=== PATIENT | female | born 1970 | race Caucasian/White ===

== ENCOUNTER 2024-04-23 06:52 | Observation (INO) | payer OTHER ==
[2024-04-20 12:06] LABS: BASOPHILS # (AUTO) 0.1 (0.0-0.1); BASOPHILS % 0.5 % (0.0-1.0); EOSINOPHILS % 0.2 % (0.0-6.0); HEMATOCRIT 48.1 % (34.2-44.1); HEMOGLOBIN 15.8 g/dL (12.0-16.0); LYMPHOCYTES # (AUTO) 2.5 (1.0-3.2); LYMPHOCYTES % 18.9 % (18.0-39.1); MEAN CORPUSCULAR HEMOGLOBIN 32.2 pg (28-32); MEAN CORPUSCULAR HGB CONC 32.8 g/dL (31-35); MEAN CORPUSCULAR VOLUME 98.2 fL (81-99); MONOCYTES # (AUTO) 0.8 (0.2-0.8); MONOCYTES % 5.8 % (4.4-11.3); NEUTROPHILS # (AUTO) 9.9 (2.1-6.9); NEUTROPHILS % 74.2 % (38.7-80.0); PLATELET COUNT 179 x10e3/uL (140-360); RED CELL DISTRIBUTION WIDTH 11.9 % (11.7-14.4); WHITE BLOOD COUNT 13.36 x10e3/uL (4.8-10.8)
[2024-04-20 12:16] LABS: INR 0.89; PROTHROMBIN TIME 12.5 seconds (11.9-14.5)
[2024-04-20 12:21] LABS: ANION GAP 18.8 mmol/L (8-16); CALCIUM 10.3 mg/dL (8.4-10.2); CREATININE, SERUM 0.98 mg/dL (0.57-1.11); POTASSIUM 3.8 mmol/L (3.5-5.1)
[~2024-04-23] VITALS: Ht 157.5 cm; Wt 58.1 kg
[~2024-04-23 06:52] MED LIST: BUPIVACAINE 0.5%/EPI 30 ML SDV INJ ONE; FARXIGA10 MG PO; JANUMET 50-1,01 EACH PO; LYRICA75 MG PO; MEDROL4 MG PO; PRAVASTATIN SOD40 MG PO; RELAFEN DS1000 MG PO; ROBAXIN PO; RYBELSUS14 MG PO; THROMBIN FOR SOLN 5,000 UNIT VIAL ONE; Vancomycin IV 1 GM VIAL ONE; ZOLOFT100 MG PO
[2024-04-23] MEDS: LACTATED RINGER'S 1,000 ML ONE (08:07)
[2024-04-23] MEDS ORDERED: FAMOTIDINE 20 MG/2 ML VIAL IV ONE (09:44)
[2024-04-23] MEDS ORDERED: ROCURONIUM BROMIDE 10 MG/ML 5ML VIAL IV ONE (09:44)
[2024-04-23] MEDS ORDERED: LIDOCAINE HCL 2% LOCAL INJ 5 ML SDV VIAL INJ ONE (09:44)
[2024-04-23] MEDS ORDERED: DEXAMETHASONE SOD PHOS 10 MG/1 ML VIAL ONE (09:44)
[2024-04-23] MEDS ORDERED: ONDANSETRON HCL INJ 2MG/ML 2ML 2 MG/ML VIAL ONE (09:44)
[2024-04-23] MEDS ORDERED: ACETAMINOPHEN 1000 MG/100 ML IV ONE (09:44)
[2024-04-23] MEDS ORDERED: SUGAMMADEX SODIUM 200 MG/2 ML VIAL IV ONE (09:44)
[2024-04-23] MEDS ORDERED: SEVOFLURANE INHAL SOLN 250 ML PEN BTL ONE (09:44)
[2024-04-23] MEDS ORDERED: PROPOFOL IV EMULSION 10 MG/ML 20 ML VIAL ONE (09:44)
[2024-04-23] MEDS ORDERED: HYDROCODON-ACE1 EA12 PO (11:14)
[2024-04-23] MEDS ORDERED: ONDANSETRON HCL INJ 2MG/ML 2ML 2 MG/ML VIAL IV PRN (11:15)
[2024-04-23] MEDS ORDERED: PROMETHAZINE HCL (IM) 25 MG/ML VIAL IM PRN (11:15)
[2024-04-23] MEDS ORDERED: MAGNESIUM/ALUMINUM/SIMETHICONE 30 ML UDC PO PRN (11:15)
[2024-04-23] MEDS ORDERED: DEXTROSE 50% SYRINGE 50 ML IV PRN (11:15)
[2024-04-23] MEDS ORDERED: ACETAMINOPHEN 325 MG TAB PO PRN (11:15)
[2024-04-23] MEDS ORDERED: Morphine 10mg syringe 10 MG/ML INJ IM PRN (11:15)
[2024-04-23] MEDS ORDERED: HYDROMORPHONE 2MG/ML IV PRN ×2 (11:15)
[2024-04-23] MEDS: INSULIN LISPRO 100 UNIT/1 ML 3ML VIAL SQ SCH (11:30)
[2024-04-23 11:53] VITALS: BP 157/75; PULSE 89; RESP 19; TEMP 98; O2SAT 99
[2024-04-23] MEDS: SODIUM CHLORIDE 0.9% 250ML 250 ML ONE (11:53)
[2024-04-23] MEDS: SODIUM CHLORIDE 0.9% 250ML 0 ML ONE (11:53)
[2024-04-23] MEDS: Vancomycin IV 1 GM VIAL ONE (11:53)
[2024-04-23 12:07] VITALS: BP 157/75; PULSE 89; RESP 19; TEMP 97.5; O2SAT 99
[2024-04-23] MEDS: LACTATED RINGER'S 1,000 ML IV SCH (13:00)
[2024-04-23] MEDS: CARISOPRODOL 350 MG TAB PO PRN (13:05)
[2024-04-23 16:00] VITALS: BP 136/71; PULSE 105; RESP 18; TEMP 98.6; O2SAT 98
[2024-04-23] MEDS: PREGABALIN 75 MG CAP PO SCH (16:58)
[2024-04-23] MEDS: OXYCODONE/ACETAMINOPHEN 5-325 1 EACH TABLET PO PRN (16:58)
[2024-04-23] MEDS: METFORMIN HCL 500 MG TAB CR PO SCH (17:00)
[2024-04-23] MEDS ORDERED: MIDAZOLAM HCL 2 MG/2 ML VIAL ONE (18:33)
[2024-04-23] MEDS ORDERED: FENTANYL CITRATE/PF 100MCG/2 ML INJ ONE ×2 (18:33→19:05)
[2024-04-23 19:29] VITALS: BP 113/61; PULSE 113; RESP 18; TEMP 98.5; O2SAT 97
[2024-04-23 21:00] VITALS: BP 113/61; PULSE 87; RESP 18; TEMP 98.5; O2SAT 97
[2024-04-23] MEDS ORDERED: ZOLPIDEM TARTRATE 5 MG TAB PO PRN (21:00)
[2024-04-23] MEDS: Vancomycin IV 1 GM in SODIUM CHLORIDE 0.9% 250ML 250 ML IV SCH (21:00)
[2024-04-24] VITALS: BP 126/63; PULSE 101; RESP 18; TEMP 98.1; O2SAT 98
[2024-04-24 04:00] VITALS: BP 147/71; PULSE 86; RESP 20; TEMP 98.3; O2SAT 99
[2024-04-24 08:00] VITALS: BP 147/71; PULSE 86; RESP 20; TEMP 98.3; O2SAT 99
[2024-04-24 08:02] VITALS: BP 129/67; PULSE 99; RESP 17; TEMP 98.2; O2SAT 99
[2024-04-24] MEDS: SERTRALINE HCL 100 MG TAB PO SCH (08:38)
== END 2024-04-24 09:48 | disposition home or self-care (01) ==
LOC: OR 06:52 → PACU V 11:04 → MED/SURG 11:53
PROVIDERS: ADMIT Neurological Surgery; ATTEND Neurological Surgery
DX: M51.16 Intervertebral disc disorders with radiculopathy, lumbar region (principal); G89.29 Other chronic pain; E11.9 Type 2 diabetes mellitus without complications; Z79.84 Long term (current) use of oral hypoglycemic drugs; E78.5 Hyperlipidemia, unspecified; F41.9 Anxiety disorder, unspecified; F32.A Depression, unspecified; Z01.810 Encounter for preprocedural cardiovascular examination; Z01.812 Encounter for preprocedural laboratory examination; Z01.818 Encounter for other preprocedural examination; Z79.899 Other long term (current) drug therapy
CPT/HCPCS: 36415 ×3; 63030; 71046; 72020; 80048; 82948 ×2; 85025; 85610; 85730; 86850; 86900; 88304; 93005; G0378 ×2; J3370; J7050; J7121; J1100; J2003; J2250; J2405